=== PATIENT | female | born 1980 | race Caucasian/White ===

== ENCOUNTER 2018-08-04 05:40 | Emergency (ER) | payer OTHER ==
[2018-08-04 06:06] VITALS: BP 101/60; PULSE 86; TEMP 98.5; BMI 24.5
[2018-08-04] MEDS ORDERED: IBUPROFEN 400 MG TABLET (FP) PO ONE ×2 (06:20→06:36)
--- NOTE | 2018-08-04 06:34 | PDOC ---
History of Present Illness - General Chief Complaint: Respiratory Stated Complaint: FLU LIKE SYMPTOMS History Source: Patient - History of Present Illness Initial Comments: 08/04/18 06:29 38 year old female with nasal congestion and headache and flu like symptoms x 3 days. denies cough, fever/ chills, throat pain, NVD, abdominal pain, father also sick with similar symptoms 08/04/18 06:35 Past History - Past Medical History Allergies/Adverse Reactions: Allergies Allergy/AdvReac Type Severity Reaction Status Date / Time No Known Allergies Allergy Verified 08/04/18 06:06 - Suicide/Smoking/Psychosocial Hx Smoking History: Never smoked Have you smoked in the past 12 months: No Information on smoking cessation initiated: No Hx Alcohol Use: No Drug/Substance Use Hx: No Review of Systems - Review of Systems Able to Perform ROS?: Yes Is the patient limited Estonian proficient: No Constitutional: No: Symptoms Reported, See HPI, Chills, Diaphoresis, Fever, Loss of Appetite, Malaise, Night Sweats, Weakness, Weight Stable, Unintentional Wgt. Loss, Unexplained wgt Loss, Other HEENTM: Yes: Nose Congestion Respiratory: No: Symptoms reported, See HPI, Cough, Orthopnea, Shortness of Breath, SOB with Exertion, SOB at Rest, Stridor, Wheezing, Productive cough, Hemoptysis, Other Cardiac (ROS): No: Symptoms Reported, See HPI, Chest Pain, Edema, Irregular Heart Rate, Lightheadedness, Palpitations, Syncope, Chest Tightness, Other ABD/GI: No: Symptoms Reported, See HPI, Abdominal Distended, Abd. Pain w/ defecation, Blood Streaked Bowels, Constipated, Diarrhea, Difficulty Swallowing , Nausea, Poor Appetite, Poor Fluid Intake, Rectal Bleeding, Vomiting, Indigestion, Abdominal cramping, Tarry Stools, Other *Physical Exam - Vital Signs Last Vital Signs Temp Pulse Resp BP Pulse Ox 98.5 F 86 18 101/60 99 08/04/18 05:40 08/04/18 05:40 08/04/18 05:40 08/04/18 05:40 08/04/18 05:40 - Physical Exam General Appearance: Yes: Appropriately Dressed HEENT: positive: Nasal Congestion. negative: Pharyngeal Erythema, Sinus Tenderness Respiratory/Chest: positive: Lungs Clear, Normal Breath Sounds Cardiovascular: positive: Regular Rhythm, Regular Rate Gastrointestinal/Abdominal: positive: Normal Bowel Sounds, Soft Musculoskeletal: positive: Normal Inspection Extremity: positive: Normal Capillary Refill, Normal Inspection, Normal Range of Motion Integumentary: positive: Normal Color, Dry, Warm Neurologic: positive: Fully Oriented, Alert Moderate Sedation - Procedure Monitoring Vital Signs: Procedure Monitoring Vital Signs Temperature 98.5 F 08/04/18 05:40 Pulse Rate 86 08/04/18 05:40 Respiratory Rate 18 08/04/18 05:40 Blood Pressure 101/60 08/04/18 05:40 O2 Sat by Pulse Oximetry (%) 99 08/04/18 05:40 Progress Note - Progress Note Progress Note: viral illness P: influenza supportive care. *DC/Admit/Observation/Transfer Diagnosis at time of Disposition: Flu-like symptoms - Discharge Dispostion Disposition: HOME Condition at time of disposition: Fair - Referrals - Patient Instructions Printed Discharge Instructions: Common Cold Additional Instructions: drink plenty of fluids drink warm fluids , soups take ibuprofen every 6 hours as needed for bodyaches follow up with your doctor as soon as possible. - Post Discharge Activity Forms/Work/School Notes: Back to Work
== END 2018-08-04 07:09 | disposition home or self-care (01) ==
LOC: JER 05:40
DX: J11.1 Influenza due to unidentified influenza virus with other respiratory manifestations (principal)
CPT/HCPCS: 87804; 99281-25